=== PATIENT | female | born 1980 | race Two or more races ===

== ENCOUNTER 2016-09-21 23:11 | Emergency (ER) | payer MEDICAID ==
[~2016-09-21] VITALS: Ht 160 cm; Wt 61.5 kg
[2016-09-21 23:14] VITALS: BP 134/85
== END 2016-09-21 23:38 | disposition home or self-care (01) ==
LOC: ED 23:26
DX: Z48.02 Encounter for removal of sutures (principal)
CPT/HCPCS: 99281